=== PATIENT | male | born 1970 | race African-American/Black ===

== ENCOUNTER 2018-01-12 09:41 | Emergency (ER) | payer OTHER ==
[2018-01-12] MEDS ORDERED: hydrALAZINE 20 MG/ML VIAL ONE (10:10)
--- NOTE | 2018-01-12 10:49 | RAD ---
FRONTAL RADIOGRAPH CHEST: Date: 01-12-18 Comparison: 11-14-08 History: Neck pain and hypertension. FINDINGS: No pneumothorax, pleural fluid, focal consolidation or alveolar edema. Heart and mediastinal contours are unremarkable. IMPRESSION: No acute findings. POS: [facility]
[2018-01-12 10:50] LABS: #Eosinphils 0.1 thou/uL (0.0-0.7); #Lymphocytes 1.3 thou/uL (1.20-3.40); #Monocytes 0.4 thou/uL (0.11-0.59); #Neutrophils 1.8 thou/uL (1.40-6.50); %Basophils 0.8 % (0.0-1.0); %Eosinophils 3.6 % (0.0-10.0); %Monocytes 11.6 % (0.0-10.0); Hemoglobin 16.2 g/dL (14.0-18.0); Mean Corpuscular HGB CONC 33.7 g/dL (32.0-36.0); Mean Corpuscular Hemoglobin 33.3 pg (27.0-31.0); Mean Corpuscular Volume 98.9 fl (80.0-94.0); Mean Platelet Volume 6.6 fL (7.4-10.4); Platelet Count 274 thou/uL (130-400); RBC Distribution Width 11.7 % (11.5-14.5); Red Blood Cell (RBC) Count 4.87 mill/uL (4.70-6.10); White Blood Cell (WBC) Count 3.7 thou/uL (4.8-10.8)
[2018-01-12 11:30] LABS: CKMB 1.7 ng/mL (0-6.6); Troponin I Less than 0.010 ng/mL (< 0.028)
[2018-01-12 11:34] LABS: ALT (SGPT) 23 U/L (8-55); AST (SGOT) 31 U/L (5-34); Albumin 4.3 g/dL (3.5-5.0); Alkaline Phosphatase 54 U/L (40-150); Anion Gap 10 mmol/L (10-20); BUN (Urea Nitrogen) 6 mg/dL (8.9-20.6); Bilirubin, Total 0.8 mg/dL (0.2-1.2); Calc. Creatinine Clearance 0 mL/min (70-130); Calcium 9.7 mg/dL (7.8-10.44); Carbon Dioxide 25 mmol/L (22-29); Chloride 105 mmol/L (98-107); Estimated GFR-MDRD Greater than 90; Globulin 3.3 g/dL (2.4-3.5); Glucose 80 mg/dL (70-105); Potassium 4.2 mmol/L (3.5-5.1); Protein, Total 7.6 g/dL (6.0-8.3); Sodium 136 mmol/L (136-145)
[2018-01-12] MEDS ORDERED: Metoprolol Tartrate 5 MG/5 ML VIAL ONE (11:48)
== END 2018-01-12 13:30 | disposition home or self-care (01) ==
LOC: ERS 09:41
DX: I10 Essential (primary) hypertension (principal); F17.210 Nicotine dependence, cigarettes, uncomplicated
CPT/HCPCS: 71045; 80053; 82553; 83880; 84484; 85025; 93005; 96374; 96375; J0360

== ENCOUNTER 2019-01-25 04:04 | Emergency (ER) | payer OTHER ==
[2019-01-25] MEDS ORDERED: hydrALAZINE 20 MG/ML VIAL ONE ×2 (05:24→06:30)
[2019-01-25] MEDS ORDERED: Metoclopramide HCl 10 MG/2 ML VIAL ONE (05:24)
[2019-01-25] MEDS ORDERED: diphenhydrAMINE 50 MG/ML VIAL ONE (05:24)
[2019-01-25 05:36] LABS: #Eosinphils 0.1 thou/uL (0.0-0.7); #Lymphocytes 0.9 thou/uL (1.20-3.40); #Monocytes 0.5 thou/uL (0.11-0.59); #Neutrophils 4.5 thou/uL (1.40-6.50); %Basophils 0.6 % (0.0-1.0); %Eosinophils 1.3 % (0.0-10.0); %Lymphocytes 15.3 % (21.0-51.0); %Neutrophils 74.8 % (42.0-75.0); Hemoglobin 15.2 g/dL (14.0-18.0); Mean Corpuscular HGB CONC 33.9 g/dL (32.0-36.0); Mean Corpuscular Hemoglobin 32.3 pg (27.0-31.0); Mean Corpuscular Volume 95.3 fL (78.0-98.0); Mean Platelet Volume 6.7 fL (7.4-10.4); Platelet Count 324 thou/uL (130-400); RBC Distribution Width 11.8 % (11.5-14.5); Red Blood Cell (RBC) Count 4.69 mill/uL (4.70-6.10)
[2019-01-25 05:53] LABS: ALT (SGPT) 18 U/L (8-55); AST (SGOT) 23 U/L (5-34); Alkaline Phosphatase 57 U/L (40-150); Anion Gap 14 mmol/L (10-20); BUN (Urea Nitrogen) 9 mg/dL (8.9-20.6); Bilirubin, Total 0.3 mg/dL (0.2-1.2); Calc. Creatinine Clearance 0 mL/min (70-130); Calcium 9.7 mg/dL (7.8-10.44); Carbon Dioxide 26 mmol/L (22-29); Chloride 100 mmol/L (98-107); Estimated GFR-MDRD Greater than 90; Globulin 3.5 g/dL (2.4-3.5); Glucose 94 mg/dL (70-105); Potassium 3.9 mmol/L (3.5-5.1); Protein, Total 7.5 g/dL (6.0-8.3); Sodium 136 mmol/L (136-145)
--- NOTE | 2019-01-25 07:07 | CT ---
CT HEAD NONCONTRAST: Date: 01/25/19 COMPARISON: 11/13/08. INDICATION: Headache. FINDINGS: No ventriculomegaly, mass effect, or acute intracranial hemorrhage. Scattered intracranial calcificat ions are again seen, stable appearing, and demonstrate dural-based appearance. Minimal periventricula r white matter hypoattenuation indicates microvascular ischemic disease. IMPRESSION: No acute intracranial hemorrhage or mass effect. POS: [facility]
== END 2019-01-25 08:30 | disposition home or self-care (01) ==
LOC: ERS 04:04
DX: I10 Essential (primary) hypertension (principal); R51 Headache
CPT/HCPCS: 70450; 80053; 84484; 85025; 96361; 96374; 96375; 96376; J0360; J1200; J2765

== ENCOUNTER 2020-10-08 06:22 | Emergency (ER) | payer OTHER ==
[2020-10-08] MEDS ORDERED: Ketorolac Tromethamine 30 MG/ML VIAL ONE (06:38)
[2020-10-08] MEDS ORDERED: cloNIDine 0.1 MG TAB ONE (06:38)
[2020-10-08] MEDS ORDERED: Metoclopramide HCl 10 MG/2 ML VIAL ONE (06:38)
== END 2020-10-08 08:40 | disposition home or self-care (01) ==
LOC: ERS 06:22
DX: R51.9 Headache, unspecified (principal); I10 Essential (primary) hypertension; F17.210 Nicotine dependence, cigarettes, uncomplicated
CPT/HCPCS: 96365; 96375; J1885; J2765

== ENCOUNTER 2021-07-02 06:26 | Emergency (ER) | payer OTHER | END 2021-07-02 10:22 | disposition home or self-care (01) | LOC: ERS 06:26 | DX: M43.6 Torticollis (principal); M62.838 Other muscle spasm; I10 Essential (primary) hypertension; F17.290 Nicotine dependence, other tobacco product, uncomplicated; Z79.899 Other long term (current) drug therapy | CPT/HCPCS: 99283 ==

== ENCOUNTER 2021-09-15 20:55 | Emergency (ER) | payer OTHER, SELFPAY | END 2021-09-15 22:30 | disposition home or self-care (01) | LOC: ERS 20:55 | DX: S39.012A Strain of muscle, fascia and tendon of lower back, initial encounter (principal); S13.4XXA Sprain of ligaments of cervical spine, initial encounter; I10 Essential (primary) hypertension; F17.290 Nicotine dependence, other tobacco product, uncomplicated; V89.2XXA Person injured in unspecified motor-vehicle accident, traffic, initial encounter | CPT/HCPCS: 72100 ==

== ENCOUNTER 2022-01-29 18:15 | Emergency (ER) | payer OTHER, SELFPAY | END 2022-01-29 21:30 | disposition home or self-care (01) | LOC: ERS 18:15 | DX: R04.0 Epistaxis (principal); I10 Essential (primary) hypertension; F17.210 Nicotine dependence, cigarettes, uncomplicated | CPT/HCPCS: 99283 ==

== ENCOUNTER 2022-02-01 07:58 | Emergency (ER) | payer SELFPAY ==
[2022-02-01] MEDS ORDERED: Oxymetazoline HCl 0.05% (30 ML BOT) ONE (08:27)
[2022-02-01 09:24] LABS: #Basophils 0.1 thou/uL (0.0-0.2); #Eosinphils 0.2 thou/uL (0.0-0.7); #Lymphocytes 0.9 thou/uL (1.20-3.40); #Monocytes 0.4 thou/uL (0.11-0.59); #Neutrophils 3.4 thou/uL (1.40-6.50); %Basophils 1.2 % (0.0-1.0); %Eosinophils 3.1 % (0.0-10.0); %Lymphocytes 18.7 % (21.0-51.0); %Monocytes 7.6 % (0.0-10.0); %Neutrophils 69.5 % (42.0-75.0); Hemoglobin 13.3 g/dL (14.0-18.0); Mean Platelet Volume 6.6 fL (7.4-10.4); Platelet Count 276 thou/uL (130-400); RBC Distribution Width 12.3 % (11.5-14.5); Red Blood Cell (RBC) Count 3.92 mill/uL (4.70-6.10); White Blood Cell (WBC) Count 4.9 thou/uL (4.8-10.8)
[2022-02-01] MEDS ORDERED: Silver Nitrate Application 1 EACH ONE (09:31)
[2022-02-01 09:32] LABS: INR-International Normal Ratio 1.1; PTT 28.4 sec (22.9-36.1); Prothrombin Time 14.7 sec (12.0-14.7)
[2022-02-01 09:42] LABS: ALT (SGPT) 12 U/L (8-55); AST (SGOT) 19 U/L (5-34); Albumin 3.7 g/dL (3.5-5.0); Alkaline Phosphatase 49 U/L (40-110); Anion Gap 12 mmol/L (10-20); BUN (Urea Nitrogen) 29 mg/dL (8.4-25.7); Bilirubin, Total 0.4 mg/dL (0.2-1.2); Calc. Creatinine Clearance 0 mL/min (70-130); Calcium 8.8 mg/dL (7.8-10.44); Carbon Dioxide 23 mmol/L (22-29); Chloride 105 mmol/L (98-107); Globulin 2.7 g/dL (2.4-3.5); Glucose 99 mg/dL (70-105); Potassium 4.7 mmol/L (3.5-5.1); Protein, Total 6.4 g/dL (6.0-8.3); Sodium 135 mmol/L (136-145)
== END 2022-02-01 10:51 | disposition home or self-care (01) ==
LOC: ERS 07:58
DX: R04.0 Epistaxis (principal); I10 Essential (primary) hypertension; F17.290 Nicotine dependence, other tobacco product, uncomplicated
CPT/HCPCS: 36415; 80053; 85025; 85610; 85730; 93005; 94760